=== PATIENT | female | born 2000 | race Hispanic/Latino ===

== ENCOUNTER 2025-03-31 17:52 | Inpatient (IN) | payer MEDICAID, OTHER ==
[2025-03-31 18:14] VITALS: BMI 27.4
[2025-03-31] MEDS ORDERED: Diphenoxylate HCl/Atropine Tablet PO PRN ×2 (18:34)
[2025-03-31] MEDS ORDERED: HYDROcodone/Acetaminophen 5/325 mg Tablet PO PRN (18:34)
[2025-03-31] MEDS ORDERED: Carboprost 250 MCG/ML AMP IM PRN (18:34)
[2025-03-31] MEDS ORDERED: Methylergonovine 0.2 MG/ML VIAL IM PRN (18:34)
[2025-03-31] MEDS ORDERED: Tranexamic Acid 1,000 MG/10 ML VIAL IVP PRN (18:34)
[2025-03-31] MEDS ORDERED: Ondansetron PF 4 MG/2 ML Vial IVP PRN (18:34)
[2025-03-31] MEDS ORDERED: Lidocaine 1% (PF) 30 ML VIAL SC PRN (18:34)
[2025-03-31] MEDS ORDERED: hydrALAZINE 20 MG/ML VIAL SLOW IVP PRN ×2 (18:34)
[2025-03-31] MEDS ORDERED: Oxytocin 30 units/NS 500 ML 500 ML IV SCH (18:45)
[2025-03-31 19:01] LABS: Hematocrit 39.2 % (34.9-44.5); Hemoglobin 13.1 g/dL (12.0-15.5); Mean Corpuscular Hemoglobin 30.5 pg (27.0-33.0); Mean Corpuscular Volume 91.2 fL (81.6-98.3); Platelet Count 158 10x3/uL (150-450); Red Blood Cell (RBC) Count 4.30 10x6/uL (3.90-5.03); White Blood Cell (WBC) Count 9.01 10x3/uL (3.5-10.5)
[2025-03-31 21:02] LABS: Syphilis Antibody Index 0.05 S/CO (<1.00 Non-Reactive)
[2025-03-31 21:04] LABS: Hep B Surf Ag - L&D Non-Reactive S/CO (NonReactive)
[2025-04-01] MEDS: Oxytocin 30 units/NS 500 ML 500 ML IV SCH (05:20)
[2025-04-01] MEDS: Ibuprofen 800 MG TAB PO PRN (18:30)
[2025-04-01] MEDS ORDERED: hydrALAZINE 20 MG/ML VIAL SLOW IVP PRN (20:31)
[2025-04-01] MEDS ORDERED: Oxytocin 30 units/NS 500 ML 500 ML IV SCH (20:31)
[2025-04-01] MEDS ORDERED: Methylergonovine 0.2 MG/ML VIAL IM PRN (20:31)
[2025-04-01] MEDS ORDERED: Preparation H Ointment 28 GM TUBE PR PRN (20:31)
[2025-04-01] MEDS ORDERED: diphenhydrAMINE 25 MG CAP PO PRN (20:31)
[2025-04-01] MEDS ORDERED: Bisacodyl 10 MG SUPP PR PRN (20:31)
[2025-04-01] MEDS ORDERED: Benzocaine-Menthol 82.5 ML CAN TOP PRN (20:31)
[2025-04-01] MEDS ORDERED: Boostrix 0.5 ML (Tdap) VIAL (>/=7 yrs of age) IM ONE (20:31)
[2025-04-01] MEDS ORDERED: Ondansetron PF 4 MG/2 ML Vial IVP PRN (20:31)
[2025-04-01] MEDS ORDERED: Milk Of Magnesia 30 ML UDCUP PO PRN (20:31)
[2025-04-01] MEDS ORDERED: Lanolin Ointment 7 GM TUBE TOP PRN (20:31)
[2025-04-02] MEDS: Ibuprofen 800 MG TAB PO SCH (00:22)
[2025-04-02] MEDS ORDERED: Ibuprofen 800 MG TAB PO SCH (02:30)
[2025-04-02] MEDS: HYDROcodone/Acetaminophen 10/325 mg Tablet PO SCH (06:29)
[2025-04-02] MEDS: Ferrous Sulfate 325 MG TAB PO SCH (07:46)
[2025-04-02] MEDS: Acetaminophen 500 MG TAB PO PRN (09:59)
[2025-04-03 08:59] VITALS: BP 113/70; TEMP 98.4
== END 2025-04-03 14:45 | disposition home or self-care (01) | DRG 807 ==
LOC: CSHLD 17:52 → CSHPP 04-01 19:30
PROVIDERS: ADMIT Family Medicine; ATTEND Family Medicine
PROC: 10E0XZZ Delivery of Products of Conception, External Approach (ICD-10-PCS; principal; 2025-04-01)
PROC: 10907ZC Drainage of Amniotic Fluid, Therapeutic from Products of Conception, Via Natural or Artificial Opening (ICD-10-PCS; 2025-04-01)
PROC: 10H07YZ Insertion of Other Device into Products of Conception, Via Natural or Artificial Opening (ICD-10-PCS; 2025-04-01)
DX: O43.893 Other placental disorders, third trimester (principal); Z37.0 Single live birth; Z3A.39 39 weeks gestation of pregnancy; O77.0 Labor and delivery complicated by meconium in amniotic fluid; O90.89 Other complications of the puerperium, not elsewhere classified; R33.9 Retention of urine, unspecified
CPT/HCPCS: 36415; 85027; 86780; 86850; 86900; 86901; 87340; J2590; J3010